=== PATIENT | female | born 2000 | race Caucasian/White ===

== ENCOUNTER 2020-06-11 06:13 | Emergency (ER) | payer OTHER ==
[~2020-06-11] VITALS: Ht 172.7 cm; Wt 113.4 kg
[2020-06-11 09:43] LABS: BASO # 0.1 10*3/uL (0.0-0.1); BASO % 0.3 % (0.0-1.0); EOS % 0.1 % (1.0-4.0); HEMATOCRIT 40.2 % (37.0-47.0); LYMPH % 6.2 % (27.0-41.0); MEAN CELL VOLUME 91.8 fl (81.0-99.0); MEAN CORPUSCULAR HGB 29.9 pg (27.0-31.0); MEAN CORPUSCULAR HGB CONC 32.6 g/dl (33.0-37.0); MEAN PLATELET VOLUME 8.9 fl (9.6-12.3); MONO # 1.1 10*3/uL (0.1-1.0); MONO % 6.9 % (3.0-9.0); NEUT # 13.9 10*3/uL (2.3-7.9); NEUT % 86.1 % (47.0-73.0); PLATELET COUNT AUTOMATED 360 10*3/uL (130-400); RED BLOOD COUNT 4.38 10*6/uL (4.10-5.10); RED CELL DISTRI WIDTH 13.6 % (0-14.5); WHITE BLOOD COUNT 16.1 10*3/uL (4.8-10.8)
[2020-06-11 09:57] LABS: ALBUMIN 3.4 gm/dl (3.1-4.5); ALKALINE PHOSPHATASE 102 U/L (45-117); BUN 12 mg/dl (7-24); CHLORIDE 109 mmol/L (98-107); CREATININE 0.92 mg/dL (0.55-1.02); POTASSIUM 4.1 mmol/L (3.5-5.1); SGOT/AST 11 IU/L (3-35); SGPT/ALT 32 U/L (12-78); SODIUM 140 mmol/L (136-145)
== END 2020-06-11 12:09 | disposition home or self-care (01) ==
LOC: ED 06:13
PROVIDERS: Internal Medicine
DX: S30.811A Abrasion of abdominal wall, initial encounter (principal); I95.9 Hypotension, unspecified; E66.9 Obesity, unspecified; Z88.1 Allergy status to other antibiotic agents; V49.59XA Passenger injured in collision with other motor vehicles in traffic accident, initial encounter; Y93.89 Activity, other specified; Y92.413 State road as the place of occurrence of the external cause; Y99.9 Unspecified external cause status

== ENCOUNTER 2022-07-25 22:13 | Emergency (ER) | payer SELFPAY ==
[~2022-07-25] VITALS: Ht 177.8 cm; Wt 136.1 kg
[2022-07-25] MEDS ORDERED: SEPTDS PO (22:38)
== END 2022-07-25 22:44 | disposition home or self-care (01) ==
LOC: ED 22:13
DX: N75.1 Abscess of Bartholin's gland (principal); Z88.1 Allergy status to other antibiotic agents

== ENCOUNTER 2022-07-26 17:16 | Emergency (ER) | payer SELFPAY ==
[~2022-07-26] VITALS: Ht 177.8 cm; Wt 136.1 kg
[~2022-07-26 17:16] MED LIST: SEPTDS PO
[2022-07-26 19:24] LABS: BASO # 0.1 10*3/uL (0.0-0.1); BASO % 0.7 % (0.0-1.0); EOS # 0.1 10*3/uL (0.0-0.4); EOS % 0.9 % (1.0-4.0); HEMATOCRIT 41.5 % (37.0-47.0); LYMPH # 1.8 10*3/uL (1.3-4.4); LYMPH % 16.9 % (27.0-41.0); MEAN CELL VOLUME 92.8 fl (81.0-99.0); MEAN CORPUSCULAR HGB 30.9 pg (27.0-31.0); MEAN CORPUSCULAR HGB CONC 33.3 g/dl (33.0-37.0); MEAN PLATELET VOLUME 9.3 fl (9.6-12.3); MONO # 0.9 10*3/uL (0.1-1.0); MONO % 8.7 % (3.0-9.0); NEUT # 7.8 10*3/uL (2.3-7.9); NEUT % 72.5 % (47.0-73.0); PLATELET COUNT AUTOMATED 330 10*3/uL (130-400); RED BLOOD COUNT 4.47 10*6/uL (4.10-5.10); RED CELL DISTRI WIDTH 13.2 % (0-14.5); WHITE BLOOD COUNT 10.8 10*3/uL (4.8-10.8)
[2022-07-26 19:48] LABS: ALKALINE PHOSPHATASE 90 U/L (46-116); BUN 9 mg/dl (9-23); CHLORIDE 109 mmol/L (98-107); POTASSIUM 3.6 mmol/L (3.4-5.1); SGPT/ALT 16 U/L (10-49); TOTAL PROTEIN 6.7 gm/dL (6.0-8.0)
== END 2022-07-26 19:30 | disposition home or self-care (01) ==
LOC: ED 17:16
PROVIDERS: Nurse Practitioner Family
DX: N76.4 Abscess of vulva (principal); Z88.1 Allergy status to other antibiotic agents

== ENCOUNTER 2023-04-15 07:37 | Emergency (ER) | payer SELFPAY ==
[~2023-04-15] VITALS: Ht 177.8 cm; Wt 136.1 kg
[2023-04-15 09:15] LABS: BILIRUBIN Negative (Negative); BLOOD 2+ (Negative); CLARITY Cloudy (Clear); COLOR Yellow (Yellow); GLUCOSE Negative (Negative); KETONE Trace (Negative); LEUKO ESTERASE Trace (Negative); NITRITE Negative (Negative); PH 7.5 (4.5-8.0)
[2023-04-15 09:22] LABS: BACTERIA 2+; RBC 16-20 rbc/hpf (0-2)
[2023-04-15] MEDS ORDERED: VIBRAMYCIN HYC100 MG PO (10:22)
[2023-04-15] MEDS ORDERED: NAPROXEN500 MG PO (10:22)
[2023-04-15] MEDS ORDERED: TIZANIDINE HCL4 MG PO (10:22)
== END 2023-04-15 11:28 | disposition home or self-care (01) ==
LOC: ED 07:37
PROVIDERS: Family Medicine
DX: M54.50 Low back pain, unspecified (principal); M62.830 Muscle spasm of back; N39.0 Urinary tract infection, site not specified; Z88.1 Allergy status to other antibiotic agents